=== PATIENT | female | born 1960 | race Caucasian/White ===

== ENCOUNTER → 2016-05-25 | Outpatient (CLI) | payer OTHER | LOC: RAD 15:43 | DX: J06.9 Acute upper respiratory infection, unspecified (principal) | CPT/HCPCS: 71020 ==

== ENCOUNTER 2016-05-26 16:57 | Emergency (ER) | payer OTHER ==
[2016-05-26 20:29] LABS: HEMOGLOBIN 13.8 gm/dl (12.3-15.3); RED BLOOD COUNT 4.28 M/UL (4.00-5.10); WHITE BLOOD COUNT 9.5 K/UL (4.5-11.0)
[2016-05-26 20:47] LABS: BUN/CREATININE RATIO 18 (0-10)
== END 2016-05-26 23:00 | disposition home or self-care (01) ==
LOC: ER1 16:57
PROVIDERS: Physician Assistant
DX: J20.9 Acute bronchitis, unspecified (principal); J42 Unspecified chronic bronchitis; E11.9 Type 2 diabetes mellitus without complications; I10 Essential (primary) hypertension; J45.909 Unspecified asthma, uncomplicated; Z87.891 Personal history of nicotine dependence; Z90.49 Acquired absence of other specified parts of digestive tract; Z88.0 Allergy status to penicillin; Z88.2 Allergy status to sulfonamides; Z88.8 Allergy status to other drugs, medicaments and biological substances; Z79.4 Long term (current) use of insulin; Z79.899 Other long term (current) drug therapy
CPT/HCPCS: 36415; 36600; 71020; 80053; 82550; 82553; 82803; 83874; 84484; 85025; 93005; 96365; 99284; J0696; J2930; J7050

== ENCOUNTER → 2016-07-06 | Outpatient (CLI) | payer OTHER | LOC: RAD 10:02 | DX: M25.511 Pain in right shoulder (principal) | CPT/HCPCS: 73030 ==

== ENCOUNTER → 2020-02-13 | Outpatient (CLI) | payer MEDICARE ==
[~2020-02-13] MED LIST: ACYCLOVIR400 MG PO; AMITRIPTYLINE100 MG PO; BACLOFEN5 MG PO; BENADRYL 25MG C25 MG PO; CRESTOR20 MG PO; DICLOFENAC GEL 1% TOP; GLUCOTROL 10 MG10 MG PO; HUMALOG MI100 UNIT/3 SQ; HYDROXYZINE HCL25 MG PO; IBUPROFEN600 MG PO; KEFLEX CAP 500500 MG PO; LEVOTHYROXINE137 MC1 PO; LISINOPRIL20 MG PO; MIRALAX 119 GR119 GM PO; NYSTATIN1 EAC9 TOP; OMEPRAZOLE20 M1 PO; PROPRANOLOL HCL10 MG PO; PROZAC40 MG PO; TERCONAZOLE TOP; VOLTREN XR 100100 MG PO
== END ==
LOC: KOH-I 08:45 → EMI 08:56
DX: M79.672 Pain in left foot (principal); M89.9 Disorder of bone, unspecified; R93.6 Abnormal findings on diagnostic imaging of limbs
CPT/HCPCS: 73721

== ENCOUNTER → 2020-04-25 | Outpatient (CLI) | payer MEDICARE, OTHER | LOC: RAD 17:08 | DX: M25.531 Pain in right wrist (principal); M79.89 Other specified soft tissue disorders | CPT/HCPCS: 73110 ==

== ENCOUNTER → 2020-06-11 | Outpatient (CLI) | payer MEDICARE, OTHER | LOC: RAD 13:27 | DX: M25.531 Pain in right wrist (principal); M79.641 Pain in right hand; M25.831 Other specified joint disorders, right wrist | CPT/HCPCS: 73110; 73130 ==

== ENCOUNTER → 2020-06-18 | Outpatient (CLI) | payer OTHER ==
[2020-06-18 10:45] LABS: HEMOGLOBIN 13.5 gm/dl (12.3-15.3); RED BLOOD COUNT 4.07 M/UL (4.00-5.10); WHITE BLOOD COUNT 11.4 K/UL (4.5-11.0)
[2020-06-18 11:04] LABS: BUN/CREATININE RATIO 23 (0-10)
== END ==
LOC: OPSV2 06-14 10:30
PROVIDERS: Anesthesiology; Podiatrist Foot & Ankle Surgery
DX: Z01.812 Encounter for preprocedural laboratory examination (principal); M19.072 Primary osteoarthritis, left ankle and foot; M95.8 Other specified acquired deformities of musculoskeletal system
CPT/HCPCS: 80048; 85027

== ENCOUNTER → 2020-07-04 | Outpatient (CLI) | payer OTHER | LOC: US 09:45 | DX: K76.0 Fatty (change of) liver, not elsewhere classified (principal) | CPT/HCPCS: 76705 ==

== ENCOUNTER → 2020-10-24 | Outpatient (CLI) | payer OTHER | LOC: KOH-I 14:03 | DX: M25.572 Pain in left ankle and joints of left foot (principal); M79.672 Pain in left foot; M19.072 Primary osteoarthritis, left ankle and foot | CPT/HCPCS: 73610; 73630 ==

== ENCOUNTER → 2020-11-21 | Outpatient (CLI) | payer OTHER | LOC: KOH-I 12:57 | DX: M79.672 Pain in left foot (principal); M19.072 Primary osteoarthritis, left ankle and foot | CPT/HCPCS: 73630 ==

== ENCOUNTER → 2020-11-29 | Outpatient (CLI) | payer OTHER | LOC: EXRD 11:00 | DX: Z01.810 Encounter for preprocedural cardiovascular examination (principal) | CPT/HCPCS: 93926 ==

== ENCOUNTER → 2021-01-22 | Outpatient (CLI) | payer OTHER ==
[2021-01-22 11:38] LABS: BUN/CREATININE RATIO 19 (0-10)
== END ==
LOC: LAB 09:40
PROVIDERS: Physician Assistant
DX: R60.0 Localized edema (principal)
CPT/HCPCS: 36415; 71046; 80048; 83880

== ENCOUNTER 2021-05-07 12:01 | Emergency (ER) | payer OTHER ==
[2021-05-07 13:10] LABS: HEMOGLOBIN 13.9 gm/dl (12.3-15.3); RED BLOOD COUNT 4.33 M/UL (4.00-5.10); WHITE BLOOD COUNT 10.3 K/UL (4.5-11.0)
[2021-05-07 13:33] LABS: BUN/CREATININE RATIO 25 (0-10)
== END 2021-05-07 18:56 | disposition home or self-care (01) ==
LOC: ER1 12:01
PROVIDERS: Physician Assistant
DX: E11.9 Type 2 diabetes mellitus without complications (principal); J44.9 Chronic obstructive pulmonary disease, unspecified; I10 Essential (primary) hypertension; E78.5 Hyperlipidemia, unspecified; Z88.0 Allergy status to penicillin; Z88.2 Allergy status to sulfonamides; Z88.8 Allergy status to other drugs, medicaments and biological substances
CPT/HCPCS: 80053; 82962; 85025; 99283

== ENCOUNTER → 2021-05-14 | Outpatient (CLI) | payer OTHER | LOC: EMI 05-12 13:24 | DX: R27.0 Ataxia, unspecified (principal); R41.3 Other amnesia | CPT/HCPCS: 70551 ==

== ENCOUNTER → 2021-06-10 | Outpatient (CLI) | payer OTHER | LOC: US 13:24 | DX: M79.602 Pain in left arm (principal); M79.642 Pain in left hand; M79.89 Other specified soft tissue disorders | CPT/HCPCS: 73090; 73130; 93971 ==

== ENCOUNTER 2021-10-16 15:50 | Emergency (ER) | payer OTHER ==
[2021-10-16 22:11] LABS: HEMOGLOBIN 14.2 gm/dl (12.3-15.3); RED BLOOD COUNT 4.28 M/UL (4.00-5.10); WHITE BLOOD COUNT 9.4 K/UL (4.5-11.0)
[2021-10-16 22:33] LABS: BUN/CREATININE RATIO 20 (0-10)
[2021-10-17] MEDS ORDERED: DOXYCYCLINE HY100 M2 PO (03:49)
== END 2021-10-17 04:14 | disposition home or self-care (01) ==
LOC: ER1 15:50
PROVIDERS: Physician Assistant
DX: N30.90 Cystitis, unspecified without hematuria (principal); E11.9 Type 2 diabetes mellitus without complications; E78.5 Hyperlipidemia, unspecified; Z88.0 Allergy status to penicillin; Z88.2 Allergy status to sulfonamides
CPT/HCPCS: 73130; 80053; 81001; 83690; 85025; 87086; 99284

== ENCOUNTER 2021-10-18 20:56 | Emergency (ER) | payer OTHER ==
[~2021-10-18 20:56] MED LIST changes: +DOXYCYCLINE HY100 M2 PO
[2021-10-18 21:34] LABS: HEMOGLOBIN 15.1 gm/dl (12.3-15.3); RED BLOOD COUNT 4.51 M/UL (4.00-5.10)
[2021-10-18 22:12] LABS: WHITE BLOOD COUNT 12.2 K/UL (4.5-11.0)
== END 2021-10-19 00:37 | disposition home or self-care (01) ==
LOC: ER1 20:56
PROVIDERS: Nurse Practitioner
DX: R41.82 Altered mental status, unspecified (principal); E11.9 Type 2 diabetes mellitus without complications; I10 Essential (primary) hypertension; Z90.89 Acquired absence of other organs; Z90.49 Acquired absence of other specified parts of digestive tract; Z90.710 Acquired absence of both cervix and uterus; Z88.0 Allergy status to penicillin; Z88.2 Allergy status to sulfonamides; Z87.891 Personal history of nicotine dependence
CPT/HCPCS: 36600; 70450; 71045; 80053; 80076; 82009; 82140; 82550; 82553; 82803; 82962; 83605; 84484; 85025; 87040; 93005; 99285

== ENCOUNTER 2021-10-31 20:31 | Inpatient (IN) | payer OTHER ==
[~2021-10-31] VITALS: Ht 162.6 cm; Wt 114.8 kg
[~2021-10-31 20:31] MED LIST changes: +GLIPIZIDE10 MG PO; -GLUCOTROL 10 MG10 MG PO
[2021-10-31 21:42] LABS: RED BLOOD COUNT 3.92 M/UL (4.00-5.10); WHITE BLOOD COUNT 7.3 K/UL (4.5-11.0)
[2021-10-31 22:02] LABS: BUN/CREATININE RATIO 22 (0-10)
[2021-11-01 06:21] LABS: HEMOGLOBIN 11.8 gm/dl (12.3-15.3); RED BLOOD COUNT 3.7 M/UL (4.00-5.10); WHITE BLOOD COUNT 6.1 K/UL (4.5-11.0)
[2021-11-01 06:46] LABS: BUN/CREATININE RATIO 23 (0-10)
[2021-11-01] MEDS ORDERED: HYDROCODON-ACE1 EAC6 PO (11:05)
[2021-11-01] MEDS ORDERED: MELOXICAM15 MG PO (11:05)
[2021-11-01] MEDS ORDERED: GABAPENTIN300 MG PO (11:05)
[2021-11-01] MEDS ORDERED: LISINOPRIL10 MG PO (11:06)
[2021-11-01] MEDS ORDERED: TOUJEO MAX300 UNIT/1 SQ (11:07)
[2021-11-01] MEDS ORDERED: LEVOTHYROXINE125 MCG PO (11:07)
[2021-11-01] MEDS ORDERED: VITAMIN D31250 MCG PO (11:08)
[2021-11-01] MEDS ORDERED: ALBUTEROL2.5 MG/3 M NEB (11:08)
[2021-11-01] MEDS ORDERED: CALCIUM500 M1 PO (14:57)
[2021-11-01] MEDS ORDERED: NYSTATIN60 GM TOP (14:58)
[2021-11-02 01:56] LABS: HEMOGLOBIN 12.1 gm/dl (12.3-15.3); RED BLOOD COUNT 3.72 M/UL (4.00-5.10); WHITE BLOOD COUNT 5.9 K/UL (4.5-11.0)
[2021-11-02 02:18] LABS: BUN/CREATININE RATIO 18 (0-10)
[2021-11-02] MEDS ORDERED: NOVOLOG FL100 UNIT/1 SQ (11:06)
[2021-11-03 03:39] LABS: BUN/CREATININE RATIO 19 (0-10)
[2021-11-04 03:25] LABS: HEMOGLOBIN 12.4 gm/dl (12.3-15.3); RED BLOOD COUNT 3.78 M/UL (4.00-5.10)
[2021-11-04 03:43] LABS: BUN/CREATININE RATIO 16 (0-10)
[2021-11-05 08:04] LABS: HEMOGLOBIN 12.8 gm/dl (12.3-15.3); RED BLOOD COUNT 3.9 M/UL (4.00-5.10); WHITE BLOOD COUNT 6.9 K/UL (4.5-11.0)
[2021-11-05 08:11] LABS: BUN/CREATININE RATIO 20 (0-10)
[2021-11-05] MEDS ORDERED: ASPIRIN 325MG325 MG PO (08:54)
[2021-11-05] MEDS ORDERED: PROTONIX 40 MG40 M1 PO (11:28)
[2021-11-05] MEDS ORDERED: NOVOLOG100 UNIT/2 SQ (11:30)
== END 2021-11-05 12:27 | disposition home or self-care (01) | DRG 637 ==
LOC: ER1 20:31 → CCU 23:08 → M/S 23:08 → CDU 23:08 → CCU 11-01 02:29 → PROG CARE 11-01 15:02 → M/S 11-03 18:30
PROVIDERS: Internal Medicine; Physician Assistant; ADMIT Family Medicine
PROC: B24BZZZ Ultrasonography of Heart with Aorta (ICD-10-PCS; principal; 2021-11-01)
DX: E11.649 Type 2 diabetes mellitus with hypoglycemia without coma (principal); R57.1 Hypovolemic shock; E87.1 Hypo-osmolality and hyponatremia; Z66 Do not resuscitate; R68.0 Hypothermia, not associated with low environmental temperature; I10 Essential (primary) hypertension; R07.89 Other chest pain; N83.202 Unspecified ovarian cyst, left side; N83.201 Unspecified ovarian cyst, right side; F32.A Depression, unspecified; G47.00 Insomnia, unspecified; E78.5 Hyperlipidemia, unspecified; E03.9 Hypothyroidism, unspecified; J44.9 Chronic obstructive pulmonary disease, unspecified; G89.29 Other chronic pain; H53.8 Other visual disturbances; M54.9 Dorsalgia, unspecified; R47.81 Slurred speech; E66.01 Morbid (severe) obesity due to excess calories; K21.9 Gastro-esophageal reflux disease without esophagitis; R53.81 Other malaise; Z79.82 Long term (current) use of aspirin; Z79.4 Long term (current) use of insulin; Z98.51 Tubal ligation status; Z87.440 Personal history of urinary (tract) infections; Z90.49 Acquired absence of other specified parts of digestive tract; Z90.710 Acquired absence of both cervix and uterus; Z88.1 Allergy status to other antibiotic agents; Z88.0 Allergy status to penicillin; Z88.2 Allergy status to sulfonamides; Z88.8 Allergy status to other drugs, medicaments and biological substances; Z80.42 Family history of malignant neoplasm of prostate; Z80.8 Family history of malignant neoplasm of other organs or systems; Z98.890 Other specified postprocedural states; Z87.891 Personal history of nicotine dependence
CPT/HCPCS: ECHO; 36415; 36600; 70450; 71045; 73130; 80048; 80053; 80307; 81001; 82550; 82553; 82803; 82962; 83036; 83605; 83690; 83735; 83880; 84439; 84443; 84484; 84550; 85025; 85027; 85610; 87040; 87086; 93005; 93306; 93971; 94664; 94760; 96374; 96375; 97116; 97161; 97166; 97535; 99285; C9113; J0696; J1650; J1956; J2270; J3475; J7050; J7121; U0002